=== PATIENT | male | born 1955 | race Caucasian/White ===

== ENCOUNTER 2020-09-09 13:27 | Emergency (ER) | payer BC ==
[~2020-09-09] VITALS: Ht 182.9 cm; Wt 105.2 kg
[~2020-09-09 13:27] MED LIST: ASPIRIN LOW-STR81 MG PO; CHERATUSSIN AC118 ML PO; FISH OIL; GLYBURIDE5 MG PO; ISOSORBIDE; ISOSORBIDE MONO30 MG PO; LEVAQUIN500 MG PO; LISINOPRIL; LISINOPRIL20 MG PO; LOVAZA; LOVAZA1 GM PO; MEDROL4 MG/DOSE-; METFORMIN HCL500 MG PO; METOPROLOL; METOPROLOL TART50 MG PO; ONGLYZA; ONGLYZA5 MG PO; SIMVASTATIN; SIMVASTATIN40 MG PO; Z.0.PLAVIX75 MG PO
[2020-09-09] MEDS ORDERED: SODIUM CHLORIDE 0.9% 1000ML 1,000 ML IV STA (13:37)
[2020-09-09] MEDS ORDERED: KETOROLAC TROMETHAMINE 30 MG/ML VIAL IV STA (13:37)
[2020-09-09 13:57] LABS: BASOPHILS % 0.3 % (0.0-1.0); EOSINOPHILS # (AUTO) 0.1 (0.0-0.4); EOSINOPHILS % 0.8 % (0.0-6.0); HEMATOCRIT 45.4 % (38.2-49.6); HEMOGLOBIN 15.3 g/dL (14.0-18.0); LYMPHOCYTES # (AUTO) 2.3 (1.0-3.2); LYMPHOCYTES % 19.2 % (18.0-39.1); MEAN CORPUSCULAR HEMOGLOBIN 32.3 pg (28-32); MEAN CORPUSCULAR HGB CONC 33.7 g/dL (31-35); MEAN CORPUSCULAR VOLUME 95.8 fL (81-99); MONOCYTES # (AUTO) 0.8 (0.2-0.8); MONOCYTES % 7.1 % (4.4-11.3); NEUTROPHILS # (AUTO) 8.4 (2.1-6.9); NEUTROPHILS % 72.3 % (38.7-80.0); PLATELET COUNT 180 x10e3/uL (140-360); RED BLOOD COUNT 4.74 x10e6/uL (4.3-5.7)
[2020-09-09 14:06] LABS: ALBUMIN 3.6 g/dL (3.5-5.0); ALBUMIN/GLOBULIN RATIO 1.1 (0.8-2.0); ANION GAP 13.8 mmol/L (8-16); CALCIUM 9.3 mg/dL (8.4-10.2); CREATININE, SERUM 1.39 mg/dL (0.72-1.25); POTASSIUM 4.8 mmol/L (3.5-5.1)
--- NOTE | 2020-09-09 14:15 | NUR ---
PATIENT STATING THAT HE IS GOING OUTSIDE "FOR SOME FRESH AIR". PATIENT'S STATING THAT HE IS "GOING OUTSIDE TO SMOKE"; INFORMED PATIENT AND FAMILY THAT THIS WAS A NONSMOKING FACILITY AND FOR HIS SAFETY, I COULD NOT LET HIM GO OUTSIDE WITH THE IV. PATIENT BECAME ARGUMENTATIVE, STATING "I DON'T KNOW WHY YOU STARTED AN IV, I AM ONLY HERE BECAUSE DR YANES TOLD ME TO COME AND GET AN XRAY"
--- OUTSIDE RECORDS SUMMARY | 2020-09-09 14:15 | XMS REPORT | Continuity of Care Document ---
Author Author [facility] Organization [facility] Address [address] [place] [address] [place] [id number] Phone Unavailable Care Team Providers Care Medical Health Researcher Name Role Phone WOO YANES Unavailable Problems This patient has no known problems. Allergies, Adverse Reactions, Alerts This patient has no known allergies or adverse reactions. Medications This patient has no known medications. Procedures This patient has no known procedures. Results Test Description Test Time Test Comments Results Result Comments Source ABDOMEN-1VIEW (KUB) [place] [id number] Patient Name: DARLINE QUEEN MR #: [id number] : 1955 Age/Sex: 61/M Req #: [id number] Adm Physician: Ordered by: WOO YANES MD Report #: [id number] Location: [facility] Room/Bed: Procedure: [id number] DX/ABDOMEN-1VIEW (KUB) Exam Date: 08/17/17 Exam Time: 1650 REPORT STATUS: Signed PROCEDURE: X-RAY ABDOMEN - KUB COMPARISON: CT abdomen and pelvis 03/04/2017. INDICATIONS: BILATERAL KIDNEY STONES FOLLOW UP FINDINGS: There are no dilated loops of bowel to suggest obstruction. There are no masses or abnormal calcifications. Vascular calcifications. There is no evidence of free air. No acute osseous abnormalities are present. Severe degenerative changes in the lower lumbar spine. CONCLUSION: No renal stones. Dictated by: Mireya Multani M.D. on 08/17/2017 at 17:25 Electronically approved by: Mireya Multani M.D. on 08/17/2017 at 17:25 Dictated By: MIREYA MULTANI MD 24 Transcribed By: JESSICA on 08/17/171724 COPY TO: WOO YANES MD
--- NOTE | 2020-09-09 14:25 | NUR ---
PATIENT REFUSING TO GO TO CT; PATIENT STATING THAT "DR YANES SENT ME FOR AN XRAY"; INFORMED PATIENT THAT DR HIDALGO WOULD COME AND SPEAK WITH THEM
--- NOTE | 2020-09-09 14:30 | NUR ---
PATIENT AND SPOUSE CONTINUE TO REFUSE TO GO TO CT; PATIENT STATING "GO AHEAD AND TAKE THIS IV OUT, I AM THROUGH MESSING WITH YOU. YOU GUYS JUST KEEP TRYING TO ADD ON MORE AND MORE THINGS, JUST FORGET IT, I AM GOING TO GO TO DR NUNEZ OFFICE"
--- NOTE | 2020-09-09 14:35 | NUR ---
PATIENT AND SPOUSE CONTINUE TO REFUSE TO GO TO CT; CONTINUE TO BE ARGUMENTATIVE TOWARDS STAFF; TYSHAWN FURNACE [employer] OPERATORACUTE DIALYSIS NURSE NOTIFIED AT THIS TIME
--- NOTE | 2020-09-09 14:45 | NUR ---
PATIENT AND FAMILY SPEAKING WITH TYSHAWN SHEEHAN
--- NOTE | 2020-09-09 15:00 | NUR ---
PATIENT AGREEING TO GO TO CT AT THIS TIME; CT NOTIFIED AND STATED THAT THERE WAS ANOTHER PATIENT THERE, BUT THAT THEY WOULD GET HIM SOON POSSIBLE
--- NOTE | 2020-09-09 15:11 | NUR ---
PATIENT GESTURING AT THE DOORWAY AT THIS TIME; PATIENT STATED THAT HE "WANTS US TO HURRY IT UP, IT IS A CT, SO COME ON LETS GO". EXPLAINED TO PATIENT THAT CT HAD BEEN NOTIFIED, AND WOULD BE HERE TO GET HIM SOON POSSIBLE. PATIENT STATED "YEAH, I AM SURE YOU MADE SURE THAT I HAD TO WAIT, NOW THAT THE DR IS MAD AT ME I AM SURE SHE DID TOO. I KNOW HOW YALL WORK". I EXPLAINED TO PATIENT THAT WHEN HE REFUSED TO GO TO CT WHEN THEY CAME TO GET HIM, THEY HAD MOVED ON WITH THE OTHER PATIENTS THAT WERE WAITING, BUT THAT THEY WOULD COME TO GET HIM SOON POSSIBLE. PATIENT AGAIN BEING VERY ARGUMENTATIVE AND RUDE TOWARDS STAFF, STATING "YEAH, RIGHT, I AM SURE YOU HAD A HAND IN MAKING SURE THEY WERE BUSY. YOU PEOPLE, I ASKED FOR ONE SIMPLE THING AND YOU JUST IGNORED ME". I EXPLAINED TO THE PATIENT AGAIN THAT THE ER PHYSICIAN ORDERED TESTS BASED ON THEIR EVALUATION OF THE PATIENT AND THE PROBLEM. PATIENT CONTINUES TO BE HOSTILE AND BELITTLING WITH STAFF.
--- NOTE | 2020-09-09 15:17 | NUR ---
WEATHERIZATION TECHNICIAN NOTIFIED OF PATIENT ISSUES AND ATTITUDE TOWARDS STAFF. PATIENT INFORMED THAT WEATHERIZATION TECHNICIAN WOULD BE NOTIFIED AND ANOTHER NURSE WOULD BE ASSIGNED.
[2020-09-09 15:18] LABS: BILIRUBIN,URINE NEGATIVE (NEGATIVE); CLARITY,URINE SL CLOUDY (CLEAR); COLOR,URINE YELLOW (YELLOW); KETONES,URINE NEGATIVE (NEGATIVE); LEUKOCYTE ESTERASE ,URINE NEGATIVE (NEGATIVE); NITRITE,URINE NEGATIVE (NEGATIVE); PROTEIN,URINE DIPSTICK >=300 (NEGATIVE); URINE UROBILINOGEN 0.2 mg/dL (0.2 - 1)
[2020-09-09 15:24] LABS: AMORPHOUS SEDIMENT,URINE FEW (FEW); BACTERIA,URINE FEW /HPF
--- NOTE | 2020-09-09 15:55 | Emergency Department Note ---
History of Present Illnes History of Present Illness Chief Complaint: Genitourinary History of Present Illness This is a 64 year old male arrives to the ED with several days of left lower quadrant abdominal pain, requested evaluation by Dr. Bhandari emergency department. Denies any dysuria hematuria, dysuria or another complaints. Historian: Patient Arrival Mode: Car Onset (how long ago): day(s) Radiation: Reports non-radiation Severity: mild Timing of current episode: constant Progression: waxing and waning Chronicity: recurrent Relieving factors: none Past Medical/Family History Physician Review I have reviewed the patient's past medical and family history. Any updates have been documented here. Past Medical History Recent Fever: No Clinical Suspicion of Infectio: No New/Unexplained Change in Ment: No Past Medical History: Hypertension, Diabetes, CHF, Kidney Stones, Hyperlip edemia Other Medical History: HIGH CHOLESTEROL DM TYPE I PCI WITH STENTS BPH Past Surgical History: PCI Other Surgery: LITHOTRIPSYX4 Fem-pop bypass Social History Physically hurt or threatened: No Other Last Tetanus: UNK Review of Systems Review of Systems Constitutional: Reports no symptoms EENTM: Reports no symptoms Cardiovascular: Reports no symptoms Respiratory: Reports no symptoms Gastrointestinal: Reports no symptoms Genitourinary: Reports as per HPI, Reports other (flank pain) Musculoskeletal: Reports no symptoms Integumentary: Reports no symptoms Neurological: Reports no symptoms Psychological: Reports no symptoms Endocrine: Reports no symptoms Hematological/Lymphatic: Reports no symptoms Physical Exam Related Data Allergies: Coded Allergies: No Known Allergies (Unverified , 03/04/17) Triage Vital Signs Vital Signs Date Time Temp Pulse Resp B/P (MAP) Pulse Ox O2 Delivery O2 Flow Rate FiO2 09/09/20 13:36 98.8 70 16 159/95 100 Vital signs reviewed: Yes Physical Exam CONSTITUTIONAL Constitutional: Present well-developed, Present well-nourished HENT HENT: Present normocephalic, Present atraumatic, Present oropharynx clear/mo ist, Present nose normal HENT L/R: Present left ext ear normal, Present right ext ear normal EYES Eyes: Reports PERRL, Reports conjunctivae normal NECK Neck: Present ROM normal PULMONARY Pulmonary: Present effort normal CARDIOVASCULAR Cardiovascular: Present regular rhythm, Present normal rate GASTROINTESTINAL GENITOURINARY Genitourinary: Present exam deferred SKIN Skin: Present warm, Present dry MUSCULOSKELETAL Musculoskeletal: Present ROM normal NEUROLOGICAL Neurological: Present alert, Present oriented x 3, Present no gross motor or sensory deficits PSYCHOLOGICAL Psychological: Present mood/affect normal, Present judgement normal Results Laboratory Result Diagram: 09/09/20 1344 09/09/20 1344 Laboratory Laboratory Tests Test 09/09/20 14:59 09/09/20 13:44 Urine Color Yellow (YELLOW) Urine Clarity Sl cloudy (CLEAR) Urine pH 5 (5 - 7) Urine Specific Fidelity 1.025 (1.010-1.025) Urine Protein >=300 (NEGATIVE) Urine Glucose (UA) 3+ (NEGATIVE) Urine Ketones Negative (NEGATIVE) Urine Blood Negative (NEGATIVE) Urine Nitrite Negative (NEGATIVE) Urine Bilirubin Negative (NEGATIVE) Urine Urobilinogen 0.2 mg/dL (0.2 - 1) Urine Leukocyte Esterase Negative (NEGATIVE) Urine RBC None /HPF (0-5) Urine WBC None /HPF (0-5) Urine Epithelial Cells None /LPF (NONE) Urine Amorphous Sediment Few (FEW) Urine Bacteria Few /HPF (NONE) White Blood Count 11.69 x10e3/uL (4.8-10.8) Red Blood Count 4.74 x10e6/uL (4.3-5.7) Hemoglobin 15.3 g/dL (14.0-18.0) Hematocrit 45.4 % (38.2-49.6) Mean Corpuscular Volume 95.8 fL (81-99) Mean Corpuscular Hemoglobin 32.3 pg (28-32) Mean Corpuscular Hemoglobin Concent 33.7 g/dL (31-35) Red Cell Distribution Width 14.0 % (11.7-14.4) Platelet Count 180 x10e3/uL (140-360) Neutrophils (%) (Auto) 72.3 % (38.7-80.0) Lymphocytes (%) (Auto) 19.2 % (18.0-39.1) Monocytes (%) (Auto) 7.1 % (4.4-11.3) Eosinophils (%) (Auto) 0.8 % (0.0-6.0) Basophils (%) (Auto) 0.3 % (0.0-1.0) Neutrophils # (Auto) 8.4 (2.1-6.9) Lymphocytes # (Auto) 2.3 (1.0-3.2) Monocytes # (Auto) 0.8 (0.2-0.8) Eosinophils # (Auto) 0.1 (0.0-0.4) Basophils # (Auto) 0.0 (0.0-0.1) Absolute Immature Granulocyte (auto 0.04 x10e3/uL (0-0.1) Sodium Level 138 mmol/L (136-145) Potassium Level 4.8 mmol/L (3.5-5.1) Chloride Level 106 mmol/L (98-107) Carbon Dioxide Level 23 mmol/L (22-29) Anion Gap 13.8 mmol/L (8-16) Blood Urea Nitrogen 29 mg/dL (7-26) Creatinine 1.39 mg/dL (0.72-1.25) Estimat Glomerular Filtration Rate 51 ML/MIN (60-) BUN/Creatinine Ratio 21 (6-25) Glucose Level 122 mg/dL (74-118) Calcium Level 9.3 mg/dL (8.4-10.2) Total Bilirubin 0.6 mg/dL (0.2-1.2) Aspartate Amino Transf (AST/SGOT) 13 IU/L (5-34) Alanine Aminotransferase (ALT/SGPT) 12 IU/L (0-55) Alkaline Phosphatase 58 IU/L (40-150) Total Protein 6.9 g/dL (6.5-8.1) Albumin 3.6 g/dL (3.5-5.0) Globulin 3.3 g/dL (2.3-3.5) Albumin/Globulin Ratio 1.1 (0.8-2.0) Lab results reviewed: Yes Imaging Imaging results reviewed: Yes Assessment & Plan Medical Decision Making MDM 64-year-old male arrives to the ED with complaints lower leg patient requesting to see urologist ED. Lab work and imaging to the ED. Signout given to Dr. Rainey to follow up Labs and CT scan and discussed with Dr. Bhandari. Assessment & Plan Final Impression: (1) Flank pain Last Vital Signs Date Time Temp Pulse Resp B/P (MAP) Pulse Ox O2 Delivery O2 Flow Rate FiO2 09/09/20 13:36 98.8 70 16 159/95 100 Home Meds Reported Medications Guaifenesin/Codeine Phosphate (CHERATUSSIN AC SYRUP) 118 Ml Liquid, 10 ML PO Q6H, #6 2 Refills 03/08/17 Methylprednisolone (MEDROL DOSE PACK) 4 Mg/Dose Pack Tab, #1 0 Refills 03/08/17 Levofloxacin (LEVAQUIN) 500 Mg Tablet, 500 MG PO DAILY, #7 TAB 0 Refills 03/08/17 Glyburide (GLYBURIDE) 5 Mg Tablet, 5 MG PO BID, #30 TAB 03/04/17 Metformin Hcl (METFORMIN HCL) 500 Mg Tablet, 1000 MG PO BID, #60 TAB 03/04/17 Metoprolol Tartrate (METOPROLOL TARTRATE) 50 Mg Tablet, 50 MG PO BID, TAB 03/04/17 Simvastatin (SIMVASTATIN) 40 Mg Tablet, 40 MG PO HS, #30 TAB 03/04/17 Saxagliptin Hcl (ONGLYZA) 5 Mg Tablet, 5 MG PO DAILY 03/04/17 [place]-3 Acid Ethyl Esters (LOVAZA) 1 Gm Capsule, 2 GM PO BID THERAPEUTICALLY SUBSTITUTED WITH OMEGA 3 FATTY ACID 03/04/17 Lisinopril (PRINAVIL / ZESTRIL) 20 Mg Tablet, 20 MG PO BID 03/04/17 Isosorbide Mononitrate (ISOSORBIDE MONONITRATE ER) 30 Mg Tab.er.24h, 30 MG PO DAILY, #30 TAB 03/04/17 Clopidogrel Bisulfate (Plavix) 75 Mg Tablet, 75 MG PO DAILY 08/09/12 Medications in the ED Sodium Chloride 1,000 ml @ 0 mls/hr Q0M STAT IV Last administered on 09/09/20at 15:31; Admin Dose 999 MLS/HR; Start 09/09/20 at 13:37; Stop 09/09/20 at 13:39; Status DC Ketorolac Tromethamine 30 mg ONCE STAT IV Last administered on 09/09/20at 15:31; Admin Dose 30 MG; Start 09/09/20 at 13:37; Stop 09/09/20 at 13:42; Status DC ROLANDO HIDALGO DO Sep 09, 2020 15:55
--- NOTE | 2020-09-09 16:33 | Diagnostic Imaging Report ---
CT of the abdomen and pelvis, without contrast, 09/09/2020. History: Left flank pain, history of Kidney stones. Comparison: None available. Technique: Multidetector CT scanning of the abdomen and pelvis was performed from the level of the lung bases to the inferior pubic rami without intravenous or oral contrast. Coronal and sagittal multiplanar reformations were obtained. RADIATION DOSE: Total DLP: 750 mGy*cm Dose modulation, iterative reconstruction, and/or weight based adjustment of the mA/kV was utilized to reduce the radiation dose to as low as reasonably achievable. Discussion: Examination is limited without contrast. Lung bases: Emphysematous and granulomatous changes are present in the right lower lobe. Abdomen: Multiple subcentimeter calcifications are present in the tressa of both kidneys suggestive of vascular classifications. There is no evidence of hydronephrosis. A 1.3 cm exophytic lesion is seen arising from the lower pole of the right kidney measuring 25 Hounsfield units in density. A second 1.3 cm exophytic right renal hypodensity measures 4 Hounsfield units in density. There is no ureteral dilatation. Multiple calcifications are present throughout the pancreas without evidence of adjacent fat stranding or fluid collection. The liver, gallbladder, biliary tree, spleen, and adrenal glands are unremarkable. The abdominal aorta is densely calcified but within normal limits for size. There is no bowel dilatation. The appendix is visualized and is normal. There is no evidence of adenopathy or free fluid. Pelvis: The bladder is unremarkable. The prostate is enlarged measuring 5.4 cm in transverse diameter. Small fat-containing inguinal hernias are present bilaterally. Multiple surgical clips are present in the right inguinal region. There is no evidence of free fluid or adenopathy. Bones and soft tissues: Advanced degenerative changes are present throughout the lumbar spine without evidence of lytic or sclerotic lesion. There is grade 1 spondylolisthesis of L5 on S1 with bilateral L5 spondylolysis. IMPRESSION: 1. No evidence of renal calculus. 2. Small simple right renal cyst and probable hyperdense right renal cyst. This may be followed with renal ultrasound in 3-6 months. 3. Findings of chronic pancreatitis without evidence of acute inflammation. 4. Prostatomegaly. Signed by: Pawan Henao on 09/09/2020 4:30 PM
[2020-09-09 17:07] LABS: AMYLASE 115 U/L (25-125); LIPASE 24 U/L (8-78)
[2020-09-09 17:57] VITALS: BP 158/95
== END 2020-09-09 17:58 | disposition home or self-care (01) ==
LOC: ER 14:12
DX: R10.32 Left lower quadrant pain (principal); M54.5 Low back pain; I10 Essential (primary) hypertension; E11.65 Type 2 diabetes mellitus with hyperglycemia; E78.5 Hyperlipidemia, unspecified; I50.9 Heart failure, unspecified; Z95.5 Presence of coronary angioplasty implant and graft; Z87.442 Personal history of urinary calculi
CPT/HCPCS: 36415; 74176; 80053; 81001; 82150; 83690; 85025; 99285; J1885; J7030